=== PATIENT | female | born 1955 | race Caucasian/White ===

== ENCOUNTER → 2016-10-10 | Outpatient (CLI) | payer BC ==
[~2016-10-10] MED LIST: ATOR20TA PO; HCT25T PO
--- NOTE | 2016-10-10 18:10 | Diagnostic Imaging Report ---
DIGITAL MAMMO LT DIAG W/CAD COMPARISON: Diagnostic mammogram of 04/06/2016 and screening mammogram of 03/25/2016. Targeted left breast ultrasound of 10/10/2016. INDICATION: Followup left breast lesions. TECHNIQUE: Digital diagnostic mammography of left breast was performed with a computer-aided detection (CAD) system. Targeted ultrasound was performed of the left breast, dictated separately. FINDINGS: Scattered fibroglandular densities are again seen. In the lateral left breast near the 3 o'clock position, there are stable subcentimeter isodense masses with partially obscured margins. These likely correspond to the multiple cysts seen on corresponding ultrasound. No new suspicious lesion is identified. IMPRESSION: 1. Stable left mammogram with multiple isodense masses which correspond to cysts seen on ultrasound. Recommend the patient return to routine bilateral screening mammogram in six months. As seen on corresponding ultrasound, there is likely an area of normal fibroglandular tissue in the lateral left breast which is only seen on ultrasound, and at the time of screening mammography, targeted ultrasound of the left breast is recommended. ACR BI-RADS Category 3: Probably benign findings. Result letter will be mailed to the patient. Note: At least 10% of breast cancer is not imaged by mammography. Dictated by: Dictated on workstation # [id number]
--- NOTE | 2016-10-10 18:15 | Diagnostic Imaging Report ---
PROCEDURE: US Breast limited, left. TECHNIQUE: Multiple realtime grayscale images were obtained over the left breast in various projections. INDICATION: Followup left breast lesions. COMPARISON: Diagnostic mammogram performed concurrently. Left breast ultrasound of 04/06/2016. FINDINGS: Targeted ultrasound of the lateral left breast at the 3 o'clock position was performed. At the approximately 3:30 position, 2 cm from the nipple, a minimally complicated cyst is again seen measuring approximately 3 x 4 x 3 mm. There is no posterior acoustic shadowing and only a single thin internal septation. A few additional scattered simple cysts are present. At the 2:30 position, 4 cm from the nipple, there is an isoechoic focus which likely represents an island of normal fibroglandular tissue and fat. There is no associated concerning abnormality in this region on mammography. No concerning solid or cystic lesions. IMPRESSION: 1. Minimally complicated cyst in the lateral left breast is stable. 2. There is a presumed focus of normal fibroglandular tissue and fat in the left breast at the 2:30 position, 4 cm from the nipple. Recommend that when the patient returned for bilateral screening mammogram in six months, targeted ultrasound of this region be performed. ACR BI-RADS Category 3: Probably benign findings. Dictated by: Dictated on workstation # [id number]
== END ==
LOC: RAD 09:19
PROVIDERS: ATTEND Family Medicine
DX: R92.8 Other abnormal and inconclusive findings on diagnostic imaging of breast (principal)
CPT/HCPCS: 76642; G0206